=== PATIENT | male | born 1975 ===

== ENCOUNTER 2018-10-17 21:48 | Inpatient (IN) | payer MEDICAID, OTHER ==
[2018-10-17] MEDS ORDERED: Albuterol-Ipratrop 3 mg / 0.5 (3 ml) UD IH STA (22:13)
--- NOTE | 2018-10-17 22:38 | ED PDOC ---
Arrival/HPI - General Chief Complaint: Psychiatric Evaluation Time Seen by Provider: 10/17/18 21:49 Historian: Patient - History of Present Illness Narrative History of Present Illness (Text): 10/17/18 22:02 42 year old male, with no significant past medical history, presents for psych admission from [facility] for depression. Patient denies any fever, chills, chest pain, shortness of breath, nausea, vomiting, diarrhea, urinary symptoms, back pain, neck pain, headache, dizziness, SI/HI, or any other complaints. Symptom Onset: Gradual Activities at Onset: Light Context: Other (transfer) Past Medical History - Provider Review Nursing Documentation Reviewed: Yes - Psychiatric Hx Psychophysiologic Disorder: Yes Hx Anxiety: Yes Hx Depression: Yes Hx Substance Use: No Family/Social History - Physician Review Nursing Documentation Reviewed: Yes Family/Social History: No Known Family HX Smoking Status: Never Smoked Hx Alcohol Use: No Hx Substance Use: No Allergies/Home Meds Allergies/Adverse Reactions: Allergies No Known Allergies Allergy (Verified 10/18/18 00:06) Home Medications: Home Meds Medication Instructions Recorded Confirmed Albuterol HFA [Ventolin HFA 90 2 puff IH DAILY PRN 10/18/18 10/18/18 mcg/actuation (8 g)] Alprazolam [Xanax] 2 mg PO TID 10/18/18 10/18/18 Review of Systems - Physician Review All systems were reviewed & negative as marked: Yes - Review of Systems Constitutional: absent: Fevers, Other (chills) Respiratory: absent: SOB Cardiovascular: absent: Chest Pain Gastrointestinal: absent: Diarrhea, Nausea, Vomiting Genitourinary Male: absent: Dysuria, Frequency, Hematuria Musculoskeletal: absent: Back Pain, Neck Pain Neurological: absent: Headache, Dizziness Psychiatric: Depression. absent: Suicidal Ideation (/HI) Physical Exam Vital Signs Reviewed: Yes Vital Signs Temp Pulse Resp BP Pulse Ox 10/17/18 21:57 98.3 F 70 18 127/80 97 Temperature: Afebrile Blood Pressure: Normal Pulse: Regular Respiratory Rate: Normal Appearance: Positive for: Well-Appearing, Non-Toxic, Comfortable Pain Distress: None Mental Status: Positive for: Alert and Oriented X 3 - Systems Exam Head: Present: Atraumatic, Normocephalic Pupils: Present: PERRL Extroacular Muscles: Present: EOMI Conjunctiva: Present: Normal Mouth: Present: Moist Mucous Membranes Neck: Present: Normal Range of Motion Respiratory/Chest: Present: Clear to Auscultation, Good Air Exchange. No: Respiratory Distress, Accessory Muscle Use Cardiovascular: Present: Regular Rate and Rhythm, Normal S1, S2. No: Murmurs Abdomen: No: Tenderness, Distention, Peritoneal Signs Back: Present: Normal Inspection Upper Extremity: Present: Normal Inspection. No: Cyanosis, Edema Lower Extremity: Present: Normal Inspection. No: Edema Neurological: Present: GCS=15, CN II-XII Intact, Speech Normal Skin: Present: Warm, Dry, Normal Color. No: Rashes Psychiatric: Present: Alert, Oriented x 3, Normal Insight, Normal Concentration Medical Decision Making ED Course and Treatment: 10/17/18 22:00 Impression: 42 year old male presents for psych admission from [facility]. Plan: -- douneb -- disposition Progress Notes: - Medication Orders Current Medication Orders: Discontinued Medications Albuterol/Ipratropium (Duoneb 3 Mg/0.5 Mg (3 Ml) Ud) 3 ml IH STAT STA Stop: 10/17/18 22:14 Last Admin: 10/17/18 22:29 Dose: 3 ml - Scribe Statement The provider has reviewed the documentation as recorded by the Shantell Mera Provider Scribe Attestation: All medical record entries made by the Scribe were at my direction and personally dictated by me. I have reviewed the chart and agree that the record accurately reflects my personal performance of the history, physical exam, medical decision making, and the department course for this patient. I have also personally directed, reviewed, and agree with the discharge instructions and disposition. Disposition/Present on Arrival - Present on Arrival Any Indicators Present on Arrival: No History of DVT/PE: No History of Uncontrolled Diabetes: No Urinary Catheter: No History of Decub. Ulcer: No History Surgical Site Infection Following: None - Disposition Have Diagnosis and Disposition been Completed?: Yes Diagnosis: Depression Disposition: HOSPITALIZED Disposition Time: 22:00 Condition: GOOD
[2018-10-17 23:12] VITALS: O2SAT 100
[2018-10-17] MEDS ORDERED: Alum-Mag Hydrox-Simethicone Susp (30 mL) PO PRN (23:41)
[2018-10-17] MEDS ORDERED: Magnesium Hydroxide Susp 30 ml UD PO PRN (23:41)
[2018-10-17] MEDS ORDERED: DiphenhydrAMINE 50 mg/ml Inj IM PRN (23:42)
[2018-10-17] MEDS ORDERED: Albuterol HFA 90 mcg/actuation (8 g) IH PRN (23:42)
--- NOTE | 2018-10-18 00:19 | PCM.BM ---
<Shawn Blackwell - Last Filed: 10/18/18 00:17> Treatment Plan Problems - Problems identified on initial assessmt Auditory Hallucinations Date Initiated: 10/18/18 Time Initiated: 00:18 Assessment reference: NA Status: Active Hopelessness/Helplessness Date Initiated: 10/18/18 Time Initiated: 00:18 Assessment reference: NA Status: Active Ineffective Coping Date Initiated: 10/18/18 Time Initiated: 00:18 Assessment reference: NA Status: Active Social Isolation Date Initiated: 10/18/18 Time Initiated: 00:18 Assessment reference: NA Status: Active Treatment assets and liabiliti Patient Assests: adapts well, cooperative, self-reliant, ADL independent, cognitively intact Patient Liabilities: live alone, physical pain, poor support system, relationship conflicts, substance abuse - Milieu Protocol Maintain good personal hygiene: daily Encourage regular showers, daily Remind patient to perform daily oral care, daily Assist patient to perform ADL's Conduct patient checks and document Observation sheet: Q15 minutes Maintain personal safety: every shift Educate patient to report safety concerns to staff, every shift Monitor environment for contraband/sharps Medication safety: Monitor for expected outcome, potential side effects: every shift, Assess barriers to learning: every shift, Assess readiness for medication education: every shift Discharge/Continuing Care - Education Needs Education Needs: Patient Medication, Patient Diagnosis/Disease Process, Patient Coping Skills, Patient Community resources, Patient Activities of Daily Living, Patient Pain, Patient Health Practices/Safety, Patient Personal Hygiene/Grooming, Patient Aftercare Safety Plan - Discharge Discharge Criteria: Tolerates medication w/o severe side effects, Free of Suicidal thoughts, Normal sleep pattern, Ability to care for self, Reduction of target symptoms <Lali Thompson - Last Filed: 10/18/18 13:15> - Diagnosis (1) Psychosis Status: Acute Interventions: 10/18/18 13:16 Psychoeducation/psychotherapy Psychopharmacology/adjustment of medications as needed/ monitoring possible side effects Evaluate pt on daily basis Compliance with medications and follow up appointments Long acting medication if pt is noncompliant with pill form Suicide and homicide risk assessment and prevention, coping strategies, safety plan Relapse prevention Reduction of symptoms Improve functional status Possible assertive community treatment Cognitive behavioral therapy Family involvement Possible social skill training as outpatient (2) Depression Status: Acute Interventions: 10/18/18 13:16 Psychoeducation Psychopharmacology/adjustment of medications as needed/ monitoring possible side effects Evaluate pt on daily basis Compliance with medications and follow up appointments Suicide and homicide risk assessment and prevention Relapse prevention Reduction of symptoms Improve functional status Family involvement As outpatient: cognitive behavioral therapy (3) Substance abuse Status: Acute Interventions: 10/18/18 13:17 Pharmacotherapy for alcohol/benzos/opioid dependence Maintaining sobriety Relapse prevention Possible rehabilitation Motivational interviewing 12-step programs: AA meetings <Liliya Hammond Y - Last Filed: 10/18/18 16:19> Family Contact Family involvement: Family/SO is involved Family contact: Patient agrees to contact Family contact name: Deisy Cortes(sister) Family contacted how many times per week?: 2
[2018-10-18 07:41] LABS: GLUCOSE,FASTING 110 mg/dL (65-110); HDL CHOLESTEROL 33 mg/dL (29-60)
[2018-10-18 07:53] LABS: LDL CHOLESTEROL 161 mg/dL (0-129)
--- NOTE | 2018-10-18 13:15 | PCM.PSYCH ---
Initial Psychiatric Evaluation - Initial Psychiatric Evaluation Type of Admission: Voluntary Legal Status: Capacity Chief Complaint (in patient's own words): "My neighbors from upstairs messed me up " Patient's Reaction to Hospitalization: Patient was admitted to the psychiatric inpatient unit for evaluation stabilization of psychotic symptoms and possible suicidal ideation. History of Present Illness and Precipitating Events: Shortly, patient is 42 year old male with a history of anxiety and depression presents to the [facility] emergency department with complaints of hearing voices and feeling anxious. states h/o of anxiety depression. [facility] did not have any ability, patient was transferred here in [place] for further evaluation stabilization and medication management. Patient was seen and examined today at the treatment team meeting, patient presented with acceptable personal hygiene, good ADLs. Patient seems to be poor and unreliable historian, said that the main reason why he came to the hospital was "depression and anxiety" patient denied feeling paranoid denied hearing voices and denied seeing things. the only psychotic statement pt reported that "my neighbours messed me up by smoking something..." But based on report patient presented to be psychotic in the ED, complaining of hearing voices for the past 4 months, telling him about person by the name David Clayton, patient did not know who the person is. Patient also said that there is some device implanted into his hand. At times voices telling him to harm others and himself but patient adamantly denied that he wanted to harm himself or others. Patient denied previous history of suicidal attempts, patient denied previous psychiatric admissions. Patient reported that he sees Dr. Damian as outpatient, patient does not remember medication besides alprazolam. Dr. Damian was contacted, left a message. Urine drug screen was positive for opioids and marijuana. Patient reports that he smokes cigarettes half a pack a day, refused to be on nicotine patch, counseling provided. Patient denied being abused in the past. Patient reported that he is constantly feeling anxious, reported that he has panic attacks. Past psychiatric history: Denied suicidal attempts, denied previously psychiatric admissions. Patient does not remember the name of the pharmacy, but remember being on alprazolam 2 mg 3 times a day. Family history: Patient denied family history of mental illness. Medical history: Patient reported that he had shoulder pain due to fall, patient reported that he needs to have surgery, he needs to have x-ray be taken. Lab Results 10/18/18 07:15: TSH 3rd Generation 0.39 L 10/18/18 07:15: Fasting Glucose 110, Triglycerides 110, Cholesterol 224 H, LDL Cholesterol Direct 161 H, HDL Cholesterol 33 Vital Signs Temp Pulse Resp BP Pulse Ox 10/18/18 07:31 97.8 F 69 20 118/76 10/17/18 23:11 97.5 F L 74 17 108/82 100 10/17/18 21:57 98.3 F 70 18 127/80 97 The patient failed the outpatient lower level of care: Yes Current Medications: Active Medications Generic Name Dose Route Start Last Admin Trade Name Freq PRN Reason Stop Dose Admin Acetaminophen 650 mg 10/17/18 23:41 10/18/18 08:48 Tylenol 325mg Tab PO 650 mg Q6H PRN Administration Pain, moderate (4-7) Al Hydrox/Mg Hydrox/Simethicone 30 ml 10/17/18 23:41 Maalox Plus 30 Ml PO DAILY PRN Indigestion / Heartburn Albuterol 2 puff 10/17/18 23:42 Ventolin Hfa 90 Mcg/Actuation (8 G) IH [id number] PRN Shortness of Breath Diphenhydramine HCl 50 mg 10/17/18 23:42 Benadryl IM Q6 PRN Severe Agitation Diphenhydramine HCl 50 mg 10/17/18 23:42 Benadryl PO Q6 PRN Agitation Haloperidol 5 mg 10/17/18 23:42 Haldol PO Q6 PRN Agitation Protocol Haloperidol Lactate 5 mg 10/17/18 23:50 Haldol IM Q6 PRN Agitation Protocol Lorazepam 1 mg 10/17/18 23:45 10/18/18 07:09 Ativan PO 1 mg Q8 ZARA Administration Protocol Lorazepam 2 mg 10/17/18 23:42 10/18/18 08:48 Ativan PO 2 mg Q6 PRN Administration anxiety/agitation Protocol Lorazepam 2 mg 10/17/18 23:42 Ativan IM Q6H PRN Agitation Protocol Magnesium Hydroxide 30 ml 10/17/18 23:41 Milk Of Magnesia PO DAILY PRN Constipation Zaleplon 10 mg 10/17/18 23:42 Sonata PO HS PRN Insomnia Present on Admission - Present on Admission Any Indicators Present on Admission: No History of DVT/PE: No History of Uncontrolled Diabetes: No Urinary Catheter: No Decubitus Ulcer Present: No Review of Systems - Review of Systems Systems not reviewed;Unavailable: Acuity of Condition - Constitutional Constitutional: As Per HPI - EENT Eyes: As Per HPI Ears: As Per HPI Nose/Mouth/Throat: As Per HPI - Cardiovascular Cardiovascular: As Per HPI - Respiratory Respiratory: As Per HPI - Gastrointestinal Gastrointestinal: As Per HPI - Genitourinary Genitourinary: As Per HPI - Reproductive: Male Reproductive:Male: As Per HPI - Musculoskeletal Musculoskeletal: As Per HPI - Integumentary Integumentary: As Per HPI - Neurological Neurological: As Per HPI - Psychiatric Psychiatric: As Per HPI - Endocrine Endocrine: As Per HPI - Hematologic/Lymphatic Hematologic: As Per HPI Past Patient History - Past Psychiatric History Previous Treatment History: None Prior Professional Help: As per HPI Prior Psychiatric Treatment: As per HPI At [facility]: As per HPI Duration: As per HPI Nature of Treatment: As per HPI Explanation of prior treatment: As per HPI - PSYCHIATRIC Hx Psychophysiologic Disorder: Yes Hx Anxiety: Yes Hx Depression: Yes Hx Substance Use: No - CARDIAC Hx Cardiac Disorders: No - PULMONARY Hx Respiratory Disorders: Yes Hx Asthma: Yes - NEUROLOGICAL Hx Neurological Disorder: No - HEENT Hx HEENT Problems: No - RENAL Hx Chronic Kidney Disease: No - ENDOCRINE/METABOLIC Hx Endocrine Disorders: No - HEMATOLOGICAL/ONCOLOGICAL Hx Blood Disorders: No - INTEGUMENTARY Hx Dermatological Problems: No - MUSCULOSKELETAL/RHEUMATOLOGICAL Hx Falls: Yes (2-3 months ago) Hx Fractures: Yes (left shoulder 2-3 months ago) Other/Comment: 2-3 months ago patient stated he tripped on the street and fell, resulting in left shoulder fracture and receiving 2 surgeries in which 2 metal plates were placed in left shoulder - GASTROINTESTINAL Hx Gastrointestinal Disorders: No - GENITOURINARY/GYNECOLOGICAL Hx Genitourinary Disorders: No - SURGICAL HISTORY Hx Surgeries: Yes Hx Musculoskeletal Surgery: Yes Other/Comment: 2-3 months ago patient stated he tripped on the street and fell, resulting in left shoulder fracture and receiving 2 surgeries in which 2 metal plates were placed in left shoulder - ANESTHESIA Hx Anesthesia: Yes - Medical/Surgical History Reviewed & confirmed: by [place] Meds Allergies/Adverse Reactions: Allergies Allergy/AdvReac Type Severity Reaction Status Date / Time No Known Allergies Allergy Verified 10/18/18 00:06 Mental Status Examination - Personal Presentation Personal Presentation: Looks stated age - Affect Affect: Constricted - Motor Activity Motor Activity: Calm - Reliability in Providing Information Reliability in Providing Information: Fair - Speech Speech: Disorganized - Mood Mood: Depressed, Anxious - Formal Thought Process Formal Thought Process: Hallucinations, Delusions, Paranoia - Hallucinations/Delusions Delusions: Persecution - Obsessions/Compulsions Obsessions: None Compulsions: None - Cognitive Functions Orientation: Person, Place, Situation, Time Sensorium: Alert Attention/Concentration: Easily distracted Estimate of Intelligence: Average Judgement: Intact, as evidence by: Insight regarding need for hospitalization - Risk Risk: Diminished functioning - Strength & Assets Inventory Strength & Assets Inventory: Cooperative, Other (Good physical help, no aggression, no agitation, not known history of suicidal attempts) - Limitations Limitations: Living alone Psychiatric Physical Exam - Physical Exam Reviewed and confirmed: Emergency Department Physical Exam Results - Vital Signs Recent Vital Signs: Last Vital Signs Temp 97.8 F 10/18/18 07:31 Pulse 69 10/18/18 07:31 Resp 20 10/18/18 07:31 BP 118/76 10/18/18 07:31 Pulse Ox 100 10/17/18 23:11 - Labs Labs: Laboratory Results - last 24 hr 10/18/18 10/18/18 07:15 07:15 Fasting Glucose 110 Triglycerides 110 Cholesterol 224 H LDL Cholesterol Direct 161 H HDL Cholesterol 33 TSH 3rd Generation 0.39 L - EKG Data EKG Interpreted by: ER Physician DSM Plan - DSM 5 DSM 5 Diagnosis: Rule out major depressive disorder, severe with psychosis Rule out late onset of schizophrenia Rule out substance-induced psychosis Rule out generalized anxiety disorder and panic disorder - Recommended/Plan of Treatment Treatment Recommendations and Plan of Treatment: Milieu/structure/supportive therapy SW consultation for discharge plan and social issues Med management Xanax was resumed 2 mg 3 times a day as needed for anxiety Seroquel 100 mg at the nighttime for psychosis and mood stabilization Medical consult will be called Physical therapy will be called Orthopedic consult will be called As needed medication Dr. Damian was contacted, left a message Family involvement Follow up on labs Will monitor closely Pt was educated about risk/benefits and alternatives of medications, coping strategies (safety plan, suicide prevention), relapse prevention, importance of follow up with psychiatrist and therapist, stay away from drugs/alcohol/smoking Projected ELOS: 7 days Prognosis: Guarded Discharge Plan and Discharge Criteria: Patient will pose no imminent danger to self or others - Tobacco Cessation Tobacco Use Status for the last 30 days: Heavy User(>=5 cigs &/or cigars/pipes daily) Tobacco Use Treatment Practical Counseling Provided: Yes Tobacco Use Treatment FDA-Approved Cessation Medication Provided: No Reason for not providing: Patient refused tobacco cessation medication - Alcohol or Substance Abuse Does the patient have an Alcohol or Substance Abuse Disorder: Yes Initial Psych Certification - Initial Certification I certify that the inpatient psychiatric facility admission was medically necessary for either: Treatment which could reasonbly be expected to improve pt's condition I estimate of hospitalization is necessary for proper treatment of the patient: 7 Unit of Time: Days My plans for post-hospital care for this patient are: Dual diagnosis program
--- NOTE | 2018-10-18 16:32 | CP.PCM.CON ---
<Juan Antonio Kiran - Last Filed: 10/18/18 16:27> History of Present Illness - History of Present Illness History of Present Illness: 42 year old male with past medical history of anxiety, depression, and asthma presenting to the hospital for possible suicidal ideation and worsening depression. Patient states he went to [facility] because he was feeling more depressed than usual. Patient denies suicidal or homicidal ideation. Patient also mentions he has had wheezing for the past several days not helped by his albuterol inhaler at home. Patient fell down stairs and had shoulder surgery two months ago. Denies chest pain, nausea, vomiting, diarrhea, fever, chills, changes in vision, numbness, tingling, weakness. Medical Hx: As above Surgical Hx: Left shoulder surgery Family Hx: Denies Social Hx: Denies alcohol, tobacco, or illicit drug use Allergies: NKDA Medications: Albuterol, nebulizer machine Review of Systems - Review of Systems Review of Systems: 12 point ROS as per HPI, otherwise negative Past Patient History - Past Social History Smoking Status: Never Smoked - CARDIAC Hx Cardiac Disorders: No - PULMONARY Hx Respiratory Disorders: Yes Hx Asthma: Yes - NEUROLOGICAL Hx Neurological Disorder: No - HEENT Hx HEENT Problems: No - RENAL Hx Chronic Kidney Disease: No - ENDOCRINE/METABOLIC Hx Endocrine Disorders: No - HEMATOLOGICAL/ONCOLOGICAL Hx Blood Disorders: No - INTEGUMENTARY Hx Dermatological Problems: No - MUSCULOSKELETAL/RHEUMATOLOGICAL Hx Falls: Yes (2-3 months ago) Hx Fractures: Yes (left shoulder 2-3 months ago) Other/Comment: 2-3 months ago patient stated he tripped on the street and fell, resulting in left shoulder fracture and receiving 2 surgeries in which 2 metal plates were placed in left shoulder - GASTROINTESTINAL Hx Gastrointestinal Disorders: No - GENITOURINARY/GYNECOLOGICAL Hx Genitourinary Disorders: No - PSYCHIATRIC Hx Psychophysiologic Disorder: Yes Hx Anxiety: Yes Hx Depression: Yes Hx Substance Use: No - SURGICAL HISTORY Hx Surgeries: Yes Hx Musculoskeletal Surgery: Yes Other/Comment: 2-3 months ago patient stated he tripped on the street and fell, resulting in left shoulder fracture and receiving 2 surgeries in which 2 metal plates were placed in left shoulder - ANESTHESIA Hx Anesthesia: Yes Meds Allergies/Adverse Reactions: Allergies Allergy/AdvReac Type Severity Reaction Status Date / Time No Known Allergies Allergy Verified 10/18/18 00:06 - Medications Medications: Current Medications Acetaminophen (Tylenol 325mg Tab) 650 mg PO Q6H PRN PRN Reason: Pain, moderate (4-7) Last Admin: 10/18/18 15:50 Dose: 650 mg Al Hydrox/Mg Hydrox/Simethicone (Maalox Plus 30 Ml) 30 ml PO DAILY PRN PRN Reason: Indigestion / Heartburn Albuterol (Ventolin Hfa 90 Mcg/Actuation (8 G)) 2 puff IH [id number] PRN PRN Reason: Shortness of Breath Alprazolam (Xanax) 2 mg PO TID PRN; Protocol PRN Reason: Anxiety Last Admin: 10/18/18 15:48 Dose: 2 mg Diphenhydramine HCl (Benadryl) 50 mg IM Q6 PRN PRN Reason: Severe Agitation Diphenhydramine HCl (Benadryl) 50 mg PO Q6 PRN PRN Reason: Agitation Haloperidol (Haldol) 5 mg PO Q6 PRN; Protocol PRN Reason: Agitation Haloperidol Lactate (Haldol) 5 mg IM Q6 PRN; Protocol PRN Reason: Agitation Lorazepam (Ativan) 2 mg IM Q6H PRN; Protocol PRN Reason: Agitation Magnesium Hydroxide (Milk Of Magnesia) 30 ml PO DAILY PRN PRN Reason: Constipation Prednisone (Prednisone Tab) 20 mg PO ONCE ONE Stop: 10/19/18 12:01 Prednisone (Prednisone Tab) 10 mg PO ONCE ONE Stop: 10/20/18 13:01 Prednisone (Prednisone Tab) 5 mg PO ONCE ONE Stop: 10/21/18 13:01 Quetiapine Fumarate (Seroquel) 100 mg PO HS ZARA; Protocol Fluticasone/Salmeterol (Advair Diskus 250/50) 1 puff IH Q12 ZARA Zaleplon (Sonata) 10 mg PO HS PRN PRN Reason: Insomnia Physical Exam - Constitutional Appears: Non-toxic, No Acute Distress - Head Exam Head Exam: ATRAUMATIC, NORMAL INSPECTION, NORMOCEPHALIC - Eye Exam Eye Exam: EOMI, Normal appearance - ENT Exam ENT Exam: Mucous Membranes Moist, Normal Exam - Respiratory Exam Respiratory Exam: Wheezes, NORMAL BREATHING PATTERN. absent: Rales, Rhonchi - Cardiovascular Exam Cardiovascular Exam: RRR, Rubs, +S1. absent: Clicks, Gallop, Systolic Murmur - GI/Abdominal Exam GI & Abdominal Exam: Normal Bowel Sounds, Soft. absent: Mass, Tenderness - Extremities Exam Extremities exam: Positive for: normal inspection. Negative for: calf tenderness, pedal edema - Neurological Exam Neurological exam: Alert, CN II-XII Intact, Oriented x3 - Psychiatric Exam Psychiatric exam: Normal Affect, Normal Mood - Skin Skin Exam: Dry, Normal Color, Warm Results - Vital Signs Recent Vital Signs: Last Vital Signs Temp 97.8 F 10/18/18 07:31 Pulse 84 10/18/18 16:00 Resp 20 10/18/18 07:31 BP 118/80 10/18/18 16:00 Pulse Ox 100 10/17/18 23:11 - Labs Labs: Laboratory Results - last 24 hr 10/18/18 10/18/18 07:15 07:15 Fasting Glucose 110 Triglycerides 110 Cholesterol 224 H LDL Cholesterol Direct 161 H HDL Cholesterol 33 TSH 3rd Generation 0.39 L Assessment & Plan - Assessment and Plan (Free Text) Plan: 42 year old male with past medical history of asthma, anxiety, and depression presenting for worsening depression and possible suicidal ideation. Urine tox demonstrates opioids and benzos. Asthma Duonebs prn Prednisone taper Advair Left shoulder surgery Continue physical therapy Depression/Anxiety Management as per psychiatry Substance abuse Counseled on illicit drug cessation Magno, PGY-3 <Lebron Stallworth - Last Filed: 10/22/18 12:57> Meds - Medications Medications: Current Medications Acetaminophen (Tylenol 325mg Tab) 650 mg PO Q6H PRN PRN Reason: Pain, moderate (4-7) Last Admin: 10/18/18 22:14 Dose: 650 mg Al Hydrox/Mg Hydrox/Simethicone (Maalox Plus 30 Ml) 30 ml PO DAILY PRN PRN Reason: Indigestion / Heartburn Albuterol (Ventolin Hfa 90 Mcg/Actuation (8 G)) 2 puff IH [id number] PRN PRN Reason: Shortness of Breath Alprazolam (Xanax) 2 mg PO TID PRN; Protocol PRN Reason: Anxiety Last Admin: 10/19/18 12:08 Dose: 2 mg Diphenhydramine HCl (Benadryl) 50 mg IM Q6 PRN PRN Reason: Severe Agitation Diphenhydramine HCl (Benadryl) 50 mg PO Q6 PRN PRN Reason: Agitation Haloperidol (Haldol) 5 mg PO Q6 PRN; Protocol PRN Reason: Agitation Haloperidol Lactate (Haldol) 5 mg IM Q6 PRN; Protocol PRN Reason: Agitation Lorazepam (Ativan) 2 mg IM Q6H PRN; Protocol PRN Reason: Agitation Magnesium Hydroxide (Milk Of Magnesia) 30 ml PO DAILY PRN PRN Reason: Constipation Prednisone (Prednisone Tab) 10 mg PO ONCE ONE Stop: 10/20/18 13:01 Prednisone (Prednisone Tab) 5 mg PO ONCE ONE Stop: 10/21/18 13:01 Quetiapine Fumarate (Seroquel) 100 mg PO HS ZARA; Protocol Last Admin: 10/18/18 21:06 Dose: 100 mg Fluticasone/Salmeterol (Advair Diskus 250/50) 1 puff IH Q12 ZARA Last Admin: 10/19/18 07:02 Dose: 1 puff Zaleplon (Sonata) 10 mg PO HS PRN PRN Reason: Insomnia Results - Vital Signs Recent Vital Signs: Last Vital Signs Temp 98.1 F 10/19/18 07:22 Pulse 87 10/19/18 07:22 Resp 20 10/19/18 07:22 BP 108/71 10/19/18 07:22 Pulse Ox 100 10/17/18 23:11 - Labs Labs: Laboratory Results - last 24 hr 10/18/18 07:15 RPR Nonreactive Attending/Attestation - Attestation I have personally seen and examined this patient.: Yes I have fully participated in the care of the patient.: Yes I have reviewed all pertinent clinical information: Yes Notes (Text): 10/19/18 16:39 Patient was seen and examined with neuropsychology medical consultant. 42 year old male with past medical history of anxiety, depression, and moderate intermittent asthma is admitted for depression.patient has mild wheezing suggestive of mild asthama exacerbation.Agreed with NEB/steroid, Continue Advair, 10/22/18 12:57
[2018-10-18] MEDS: Fluticasone-Salmeterol 250-50mcg Diskus IH SCH (17:57)
[2018-10-19] MEDS: Fluticasone-Salmeterol 250-50mcg Diskus IH SCH ×2 (07:02→17:23)
--- NOTE | 2018-10-19 15:34 | PCM.PYCHPN ---
Psychiatric Progress Note - Psychiatric Progress Note Patient seen today, length of contact: 30 minutes Patient Chief Complaint: "My neighbors from upstairs messed me up " Problems Identified/Issues Discussed: Treatment plan, risks/benefits/alternatives of the medications, aftercare plan. Medical Problems: Patient is relatively healthy, was seen by medical team, consult appreciated. Please see notes for more detailed information. Diagnostic Results: Lab Results 10/18/18 07:15: RPR Nonreactive 10/18/18 07:15: TSH 3rd Generation 0.39 L 10/18/18 07:15: Fasting Glucose 110, Triglycerides 110, Cholesterol 224 H, LDL Cholesterol Direct 161 H, HDL Cholesterol 33 Vital Signs Temp Pulse Resp BP Pulse Ox 10/19/18 07:22 98.1 F 87 20 108/71 10/18/18 16:00 84 118/80 10/18/18 07:31 97.8 F 69 20 118/76 10/17/18 23:11 97.5 F L 74 17 108/82 100 10/17/18 21:57 98.3 F 70 18 127/80 97 DSM 5 Symptoms Update: Shortly, patient is 42 year old male with a history of anxiety and depression presents to the [facility] emergency department with complaints of hearing voices and feeling anxious. states h/o of anxiety depression. [facility] did not have any ability, patient was transferred here in [place] for further evaluation stabilization and medication management. Patient was seen and examined today next to the nursing station. Patient presented to be oddly related, anxious, patient reported that he did not hear voices today, patient remembered that she was feeling paranoid and heard voices prior to come to the hospital. As per staff patient is compliant with her medications, no agitation or aggr ession, patient is visible in the unit. Discussed with outpatient psychiatrist Dr. Damian, 3 weeks ago patient was prescribed Ritalin, Dr. Damian cannot exclude that voices/paranoia could be a side effect from Ritalin. Patient has history of being on Seroquel, patient did not have history of hearing voices, no history of seeing things are going was prescribed as a mood stabilizer. ?medical marijuana prescribe. So far patient tolerates medications well, no side effects observed or reported, aims 0, no EPS. Impression: DSM 5 Diagnosis: Rule out major depressive disorder, severe with psychosis Rule out medication (ritalin) induced psychosis Rule out late onset of schizophrenia Rule out substance-induced psychosis Rule out generalized anxiety disorder and panic disorder Medication Change: Yes (Seroquel increased) Medical Record Reviewed: Yes Consults ordered or reviewed: Medical consult appreciated Mental Status Examination - Cognitive Function Orientation: Person, Place, Situation, Time Memory: Intact Attention: Poor Concentration: Poor Association: WNL Fund of Knowledge: WNL - Mood Mood: Depressed, Anxious - Affect Affect: Constricted - Formal Thought Process Formal Thought Process: Hallucinations, Delusions, Paranoia - Suicidal Ideation Suicidal Ideation: No - Homicidal Ideation Homicidal Ideation: No Goal/Treatment Plan - Goal/Treatment Plan Need for Continued Stay: Remain at risks for inpatient hospitalization, Severe depression anxiety, Discharge may exacerbated symptoms, Severe functional impairment Progress Toward Problem(s) and Goals/Treatment Plan: Milieu/structure/supportive therapy consultation for discharge plan and social issues Med management Xanax was resumed 2 mg 3 times a day as needed for anxiety Seroquel 100 mg at the nighttime for psychosis and mood stabilization Sonata 10 mg at the nighttime for insomnia Medical consult will be called Physical therapy will be called Orthopedic consult called As needed medication Dr. Damian collaterals appreciated Family involvement Follow up on labs Will monitor closely Pt was educated about risk/benefits and alternatives of medications, coping strategies (safety plan, suicide prevention), relapse prevention, importance of follow up with psychiatrist and therapist, stay away from drugs/alcohol/smoking Estimated Date of D/C: 10/28/18
[2018-10-20] MEDS: Fluticasone-Salmeterol 250-50mcg Diskus IH SCH ×2 (06:02→17:58)
--- NOTE | 2018-10-20 13:48 | PCM.PYCHPN ---
Psychiatric Progress Note - Psychiatric Progress Note Patient seen today, length of contact: 30 minutes Patient Chief Complaint: "I am feeling better, I slept well" Problems Identified/Issues Discussed: Treatment plan, risks/benefits/alternatives of the medications, aftercare plan. Medical Problems: Patient is relatively healthy, was seen by medical team, consult appreciated. Please see notes for more detailed information. Diagnostic Results: Lab Results 10/18/18 07:15: RPR Nonreactive 10/18/18 07:15: TSH 3rd Generation 0.39 L 10/18/18 07:15: Fasting Glucose 110, Triglycerides 110, Cholesterol 224 H, LDL Cholesterol Direct 161 H, HDL Cholesterol 33 Vital Signs Temp Pulse Resp BP Pulse Ox 10/19/18 07:22 98.1 F 87 20 108/71 10/18/18 16:00 84 118/80 10/18/18 07:31 97.8 F 69 20 118/76 10/17/18 23:11 97.5 F L 74 17 108/82 100 10/17/18 21:57 98.3 F 70 18 127/80 97 DSM 5 Symptoms Update: Shortly, patient is 42 year old male with a history of anxiety and depression presents to the [facility] emergency department with complaints of hearing voices and feeling anxious. states h/o of anxiety depression. [facility] did not have any ability, patient was transferred here in [place] for further evaluation stabilization and medication management. Patient was seen and examined today next to the nursing station. Patient presented to be oddly related, at times smiling inappropriately, but denied any psychotic symptoms. As per social media director who obtained collateral information from patient's sister, patient was observed talking to himself, internally preoccupied, disorganized. As per staff patient is compliant with medications, no agitation or aggression, patient is visible in the unit. Discussed with outpatient psychiatrist Dr. Damian, 3 weeks ago patient was prescribed Ritalin, Dr. Damian cannot exclude that voices/paranoia could be a side effect from Ritalin. Patient has history of being on Seroquel, patient did not have history of hearing voices, no history of seeing things are going was prescribed as a mood stabilizer. ?medical marijuana prescribe. So far patient tolerates medications well, no side effects observed or reported, aims 0, no EPS. Impression: DSM 5 Diagnosis: Rule out major depressive disorder, severe with psychosis Rule out medication (ritalin) induced psychosis Rule out late onset of schizophrenia Rule out substance-induced psychosis Rule out generalized anxiety disorder and panic disorder Medication Change: Yes (Seroquel increased) Medical Record Reviewed: Yes Mental Status Examination - Cognitive Function Orientation: Person, Place, Situation, Time Memory: Intact Attention: Poor Concentration: Poor Association: WNL Fund of Knowledge: WNL - Mood Mood: Depressed, Anxious - Affect Affect: Constricted - Formal Thought Process Formal Thought Process: Hallucinations, Delusions, Paranoia, Other (appears to be disorganized) - Suicidal Ideation Suicidal Ideation: No - Homicidal Ideation Homicidal Ideation: No Goal/Treatment Plan - Goal/Treatment Plan Need for Continued Stay: Remain at risks for inpatient hospitalization, Severe depression anxiety, Discharge may exacerbated symptoms, Severe functional impairment Progress Toward Problem(s) and Goals/Treatment Plan: Milieu/structure/supportive therapy SW consultation for discharge plan and social issues Med management Xanax was resumed 2 mg 3 times a day as needed for anxiety Seroquel 100 mg amhs for psychosis and mood stabilization Sonata 10 mg at the nighttime for insomnia Medical consult will be called Physical therapy will be called Orthopedic consult called As needed medication Dr. Damian collaterals appreciated Family involvement Follow up on labs Will monitor closely Pt was educated about risk/benefits and alternatives of medications, coping strategies (safety plan, suicide prevention), relapse prevention, importance of follow up with psychiatrist and therapist, stay away from drugs/alcohol/smoking Estimated Date of D/C: 10/28/18
[2018-10-21] MEDS: Fluticasone-Salmeterol 250-50mcg Diskus IH SCH ×2 (06:15→18:35)
--- NOTE | 2018-10-21 14:54 | PCM.PYCHPN ---
Psychiatric Progress Note - Psychiatric Progress Note Patient seen today, length of contact: 30 minutes Patient Chief Complaint: "I am feeling better, I slept well" Problems Identified/Issues Discussed: Treatment plan, risks/benefits/alternatives of the medications, aftercare plan. Medical Problems: Patient is relatively healthy, was seen by medical team, consult appreciated. Please see notes for more detailed information. Diagnostic Results: Lab Results 10/18/18 07:15: RPR Nonreactive 10/18/18 07:15: TSH 3rd Generation 0.39 L 10/18/18 07:15: Fasting Glucose 110, Triglycerides 110, Cholesterol 224 H, LDL Cholesterol Direct 161 H, HDL Cholesterol 33 Vital Signs Temp Pulse Resp BP Pulse Ox 10/19/18 07:22 98.1 F 87 20 108/71 10/18/18 16:00 84 118/80 10/18/18 07:31 97.8 F 69 20 118/76 10/17/18 23:11 97.5 F L 74 17 108/82 100 10/17/18 21:57 98.3 F 70 18 127/80 97 DSM 5 Symptoms Update: Shortly, patient is 42 year old male with a history of anxiety and depression presents to the [facility] emergency department with complaints of hearing voices and feeling anxious. states h/o of anxiety depression. [facility] did not have any ability, patient was transferred here in [place] for further evaluation stabilization and medication management. Patient was seen and examined today next to the nursing station. Patient presented to be oddly related, at times smiling inappropriately, but denied any psychotic symptoms. As per professor of social work who obtained collateral information from patient's sister, patient was observed talking to himself, internally preoccupied, disorganized. As per staff patient is compliant with medications, no agitation or aggression, patient is visible in the unit. Discussed with outpatient psychiatrist Dr. Damian, 3 weeks ago patient was prescribed Ritalin, Dr. Damian cannot exclude that voices/paranoia could be a side effect from Ritalin. Patient has history of being on Seroquel, patient did not have history of hearing voices, no history of seeing things are going was prescribed as a mood stabilizer. ?medical marijuana prescribe. So far patient tolerates medications well, no side effects observed or reported, aims 0, no EPS. Impression: DSM 5 Diagnosis: Rule out major depressive disorder, severe with psychosis Rule out medication (ritalin) induced psychosis Rule out late onset of schizophrenia Rule out substance-induced psychosis Rule out generalized anxiety disorder and panic disorder Medication Change: Yes (Seroquel increased) Medical Record Reviewed: Yes Consults ordered or reviewed: Medical consult appreciated Mental Status Examination - Cognitive Function Orientation: Person, Place, Situation, Time Memory: Intact Attention: Poor (Some improvement) Concentration: Poor (Some improvement) Association: WNL Fund of Knowledge: WNL - Mood Mood: Depressed, Anxious - Affect Affect: Constricted - Formal Thought Process Formal Thought Process: Hallucinations, Delusions, Paranoia, Other (appears to be disorganized) - Suicidal Ideation Suicidal Ideation: No - Homicidal Ideation Homicidal Ideation: No Goal/Treatment Plan - Goal/Treatment Plan Need for Continued Stay: Remain at risks for inpatient hospitalization, Severe depression anxiety, Discharge may exacerbated symptoms, Severe functional impairment Progress Toward Problem(s) and Goals/Treatment Plan: Milieu/structure/supportive therapy SW consultation for discharge plan and social issues Med management Xanax was resumed 2 mg 3 times a day as needed for anxiety Seroquel 100 mg amhs for psychosis and mood stabilization Sonata 10 mg at the nighttime for insomnia Medical consult called, discussed with Dr. aranda on today 10/21/2018 Physical therapy called Orthopedic consult called As needed medication Dr. Damian collaterals appreciated Family involvement Follow up on labs Will monitor closely Pt was educated about risk/benefits and alternatives of medications, coping strategies (safety plan, suicide prevention), relapse prevention, importance of follow up with psychiatrist and therapist, stay away from drugs/alcohol/smoking Estimated Date of D/C: 10/28/18
[2018-10-22] MEDS: Fluticasone-Salmeterol 250-50mcg Diskus IH SCH ×2 (06:46→17:29)
--- NOTE | 2018-10-22 09:13 | PCM.PYCHPN ---
Psychiatric Progress Note - Psychiatric Progress Note Patient seen today, length of contact: 30 minutes Problems Identified/Issues Discussed: I reviewed assessment and recent notes. I met with patient in the dayroom. He is cooperative and oriented to month, year, location and circumstances. Grooming is adequate and patient can express his needs fairly well. Patient reports continued depression and anxiety however feels his symptoms are improving. Denies any side effects from his medications or any new discomfort or pain. Reports some chronic discomfort in his left shoulder from when he broke it a few months ago. Sleep has been a little restless. Patient's thought process is generally coherent. His affect is constricted, friendly and mildly odd. Patient denies any perceptual disturbance and he is not suicidal or homicidal. Delusions were not elicited. Patient has been groomed, visible and communicative on the unit. Participates in groups and seen socializing appropriately. There were no behavioral issues overnight. Diagnostic Results: Rule out major depressive disorder, severe with psychosis Rule out medication (ritalin) induced psychosis Rule out late onset of schizophrenia Rule out substance-induced psychosis Rule out generalized anxiety disorder and panic disorder Medication Change: Yes (Sonata prn increased) Medical Record Reviewed: Yes Mental Status Examination - Cognitive Function Orientation: Person, Place, Situation, Time Memory: Intact Attention: Poor (Some improvement) Concentration: Poor (Some improvement) Association: WNL Fund of Knowledge: WNL - Mood Mood: Depressed, Anxious - Affect Affect: Constricted - Formal Thought Process Formal Thought Process: Hallucinations, Delusions, Paranoia, Other (appears to be disorganized) - Suicidal Ideation Suicidal Ideation: No - Homicidal Ideation Homicidal Ideation: No Goal/Treatment Plan - Goal/Treatment Plan Need for Continued Stay: Remain at risks for inpatient hospitalization, Severe depression anxiety, Discharge may exacerbated symptoms, Severe functional impairment Progress Toward Problem(s) and Goals/Treatment Plan: * c/w current tx and plan * Sonata 10 mg po HS prn increased to 20 mg po HS prn on 10/22/18 to help with insomnia * Vitals reviewed and noted below: Selected Entries 10/21/18 10/21/18 10/22/18 07:15 16:00 06:51 Temperature 98.3 F 97.9 F Pulse Rate 83 80 99 H Respiratory 20 19 Rate Blood Pressure 116/81 100/62 145/94 H 10/22/18 07:54 Temperature 97.9 F Pulse Rate Respiratory Rate Blood Pressure * No new weekend lab results noted thus far Estimated Date of D/C: 10/28/18
[2018-10-23] MEDS: Fluticasone-Salmeterol 250-50mcg Diskus IH SCH ×2 (06:49→19:14)
[2018-10-23 07:30] VITALS: RESP 20
--- NOTE | 2018-10-23 09:20 | PCM.PYCHPN ---
Psychiatric Progress Note - Psychiatric Progress Note Patient seen today, length of contact: 30 minutes Problems Identified/Issues Discussed: I reviewed recent notes and met with patient in the hallway. He is cooperative and oriented to month, year, location and circumstances. Grooming is adequate and patient can express his needs fairly well. Patient reports continued depression and anxiety however feels his symptoms are improving. Denies any side effects from his medications or any new discomfort or pain. Reports some chronic discomfort in his left shoulder from when he broke it a few months ago. Sleep has been a little restless but "most definitely getting better". Patient's thought process is generally coherent. His affect is constricted, friendly and mildly odd. Patient denies any perceptual disturbance and he is not suicidal or homicidal. Delusions were not elicited. Patient has been groomed, visible and communicative on the unit. Participates in groups and seen socializing appropriately. Still has bouts of anxiety, improved with xanax prn (received 2 mg x1 on 10/20/18, 2 mg x1 on 10/21/18 and 2 mg x1 on 10/22/18. There were no behavioral issues over the weekend. Diagnostic Results: Rule out major depressive disorder, severe with psychosis Rule out medication (ritalin) induced psychosis Rule out late onset of schizophrenia Rule out substance-induced psychosis Rule out generalized anxiety disorder and panic disorder Medication Change: Yes (Sonata prn increased) Medical Record Reviewed: Yes Mental Status Examination - Cognitive Function Orientation: Person, Place, Situation, Time Memory: Intact Attention: Poor (Some improvement) Concentration: Poor (Some improvement) Association: WNL Fund of Knowledge: WNL - Mood Mood: Depressed, Anxious - Affect Affect: Constricted - Formal Thought Process Formal Thought Process: Hallucinations, Delusions, Paranoia, Other (appears to be disorganized) - Suicidal Ideation Suicidal Ideation: No - Homicidal Ideation Homicidal Ideation: No Goal/Treatment Plan - Goal/Treatment Plan Need for Continued Stay: Remain at risks for inpatient hospitalization, Severe depression anxiety, Discharge may exacerbated symptoms, Severe functional impairment Progress Toward Problem(s) and Goals/Treatment Plan: * c/w current tx and plan * Sonata 10 mg po HS prn increased to 20 mg po HS prn on 10/22/18 to help with insomnia * Vitals reviewed and noted below: Selected Entries 10/21/18 10/21/18 10/22/18 07:15 16:00 06:51 Temperature 98.3 F 97.9 F Pulse Rate 83 80 99 H Respiratory 20 19 Rate Blood Pressure 116/81 100/62 145/94 H 10/22/18 07:54 Temperature 97.9 F Pulse Rate Respiratory Rate Blood Pressure * No new weekend lab results noted Estimated Date of D/C: 10/28/18
--- NOTE | 2018-10-23 09:58 | RAD ---
Date of service: 10/23/2018 PROCEDURE: Radiographs of the Left Shoulder HISTORY: post op lt shoulder surg at [facility] COMPARISON: No prior. TECHNIQUE: 3 views obtained. FINDINGS: BONES: Prior open reduction internal plate and screw fixation of the humeral head. JOINTS: Acromioclavicular joint degenerative changes. SOFT TISSUES: Normal. OTHER FINDINGS: None. IMPRESSION: Prior left humeral ORIF.
[2018-10-24] MEDS: Fluticasone-Salmeterol 250-50mcg Diskus IH SCH (06:32)
[2018-10-24 07:44] VITALS: BP 111/67; PULSE 86; TEMP 98.3
--- NOTE | 2018-10-24 07:52 | CON ---
DATE: 10/23/2018 ORTHOPEDIC CONSULT REPORT HISTORY OF PRESENT ILLNESS: He is in room 516, bed [address] Lali Thompson, under psychiatric service. The patient is a 42-year-old male admitted on 10/17/2018 for mental hygiene evaluation and he was found to have a past history of recent left shoulder surgery done at [facility] in [place] for a fracture. Apparently, the wound is healed. No signs of infection, but has extreme limited range of motion with decreased external rotation and abduction where he can only abduct to 30-40 degrees and keeps his arm in internal rotation. We will get a x-ray to see what the orthopedic status is of the left shoulder. We could either do physical therapy to help his range of motion. His pain is tolerable as long as he does not move it, may be he said he has restricted range of motion postop with postop fibrosis will wait to see in x-ray to determine what is the next step. FINAL DIAGNOSIS: Postoperative arthrofibrosis, left shoulder with internal fixation. PLAN: To send him for physical therapy and get an x-ray of his left shoulder for a month old surgery at the [facility]. I will re-evaluate him after the x-ray is back. Abdias Bernal DO MTDJohn
--- NOTE | 2018-10-24 12:20 | PCM.BM ---
<Sofy Nuno - Last Filed: 10/24/18 12:19> Treatment Plan Problems - Problems identified on initial assessmt Auditory Hallucinations Date Initiated: 10/18/18 (DENIES AND FOR D/C TODAY) Time Initiated: 00:18 Date resolved: 10/24/18 Assessment reference: NA Status: Active Hopelessness/Helplessness Date Initiated: 10/18/18 Time Initiated: 00:18 Date resolved: 10/24/18 Assessment reference: NA Status: Active Ineffective Coping Date Initiated: 10/18/18 Time Initiated: 00:18 Date resolved: 10/24/18 Assessment reference: NA Status: Active Social Isolation Date Initiated: 10/18/18 Time Initiated: 00:18 Date resolved: 10/24/18 Assessment reference: NA Status: Active Treatment assets and liabiliti Patient Assests: adapts well, cooperative, self-reliant, ADL independent, cognitively intact Patient Liabilities: live alone, physical pain, poor support system, relationship conflicts, substance abuse - Milieu Protocol Maintain good personal hygiene: daily Encourage regular showers, daily Remind patient to perform daily oral care, daily Assist patient to perform ADL's Conduct patient checks and document Observation sheet: Q15 minutes Maintain personal safety: every shift Educate patient to report safety concerns to staff, every shift Monitor environment for contraband/sharps Medication safety: Monitor for expected outcome, potential side effects: every shift, Assess barriers to learning: every shift, Assess readiness for medication education: every shift Milieu Narrative: * c/w current tx and plan * Sonata 10 mg po HS prn increased to 20 mg po HS prn on 10/22/18 to help with insomnia * Vitals reviewed and noted below: Selected Entries 10/21/18 10/21/18 10/22/18 07:15 16:00 06:51 Temperature 98.3 F 97.9 F Pulse Rate 83 80 99 H Respiratory 20 19 Rate Blood Pressure 116/81 100/62 145/94 H 10/22/18 07:54 Temperature 97.9 F Pulse Rate Respiratory Rate Blood Pressure * No new weekend lab results noted Family Contact Family involvement: Family/SO is involved Family contact: Patient agrees to contact Family contact name: Deisy Cortes(sister) Family contacted how many times per week?: 2 Discharge/Continuing Care - Education Needs Education Needs: Patient Medication, Patient Diagnosis/Disease Process, Patient Coping Skills, Patient Community resources, Patient Activities of Daily Living, Patient Pain, Patient Health Practices/Safety, Patient Personal Hygiene/Grooming, Patient Aftercare Safety Plan - Discharge Discharge Criteria: Tolerates medication w/o severe side effects, Free of Suicidal thoughts, Normal sleep pattern, Ability to care for self, Reduction of target symptoms - Treatment Team Participation Patient/Family/SO Statement: * c/w current tx and plan * Sonata 10 mg po HS prn increased to 20 mg po HS prn on 10/22/18 to help with insomnia * Vitals reviewed and noted below: Selected Entries 10/21/18 10/21/18 10/22/18 07:15 16:00 06:51 Temperature 98.3 F 97.9 F Pulse Rate 83 80 99 H Respiratory 20 19 Rate Blood Pressure 116/81 100/62 145/94 H 10/22/18 07:54 Temperature 97.9 F Pulse Rate Respiratory Rate Blood Pressure * No new weekend lab results noted Treatment Plan Review - Problem Auditory Hallucinations Time Initiated: 00:18 Hopelessness/Helplessness Time Initiated: 00:18 Ineffective Coping Time Initiated: 00:18 Social Isolation Time Initiated: 00:18 <Lali Thompson A - Last Filed: 10/24/18 16:27> - Diagnosis (1) Psychosis Status: Acute Interventions: 10/24/18 16:26 Psychosis improved Patient tolerated medications well Denied visual auditory tactile hallucinations, denied paranoid ideations, patient does not appear to be psychotic (2) Depression Status: Acute Interventions: 10/24/18 16:27 Was depressed, denied suicidal ideations and none was elicited. (3) Substance abuse Status: Acute Interventions: 10/24/18 16:27 Denied using substances, but he was positive because of pain medication
--- NOTE | 2018-10-24 16:38 | PCM.PYCHDC ---
Mental Status Examination - Mental Status Examination Orientation: Person, Place, Time Memory: Intact Mood: Neutral Affect: Constricted (But more reactive and mood congruent) Speech: Appropriate Attention: WNL Concentration: WNL Formal Thought Process: No Impairment Description of patient's judgement and insight: Improved Psychotic Thoughts and Behaviors: Thought process mildly disorganized, but patient voiced things, denied ideations. Suicidal Ideation: No Current Homicidal Ideation?: No Plan: Adamantly denies thoughts of harming himself or others. Discharge Plan - Discharge Note Reason for Hospitalization: Patient was admitted to the psychiatric inpatient unit for evaluation stabilization of psychotic symptoms and possible suicidal ideation. Psychiatric History (includes Medical, Family, Personal Hx): As per HPI Consultations:: List each consultation separately and include: 1. Reason for request. 2. Findings. 3. Follow-up Consultations: Medical consult appreciated Summary of Hospital Course include:: 1. Description of specific treatment plan utilized for patients during their course of treatmen. 2. Summarize the time- course for resolution of acute symptoms and/or regressed behaviors. 3. Describe issues identified and worked on during hospitalization. 4. Describe medication utilized. 5. Describe medical problems identified and treated. 6. Reassessment of suicide risk Summary of Hospital Course: Shortly, patient is 42 year old male with a history of anxiety and depression presents to the [facility] emergency department with complaints of hearing voices and feeling anxious. states h/o of anxiety depression. [facility] did not have any ability, patient was transferred here in [place] for further evaluation stabilization and medication management. At the time of admission patient presented to be poor and unreliable historian, said that the main reason why he came to the hospital was "depression and anxiety" patient denied feeling paranoid denied hearing voices and denied seeing things. the only psychotic statement pt reported that "my neighbours messed me up by smoking something..." But based on report patient presented to be psychotic in the ED, complaining of hearing voices for the past 4 months, telling him about person by the name David Clayton, patient did not know who the person is. Patient also said that there is some device implanted into his hand. At times voices telling him to harm others and himself but patient adamantly denied that he wanted to harm himself or others. Please see admission note for more detailed information. Patient was stabilized on the following medications: The Xanax 2 mg 3 times a day as needed for anxiety Advair. Seroquel 100 mg twice a day for psychosis as well, no side effects observed or reported, aims 0, no EPS. Collaterals were obtained from patient's primary psychiatrist Dr. Damian please see notes for more detailed information. Overall patient improved significantly, psychosis improved, patient was compli ant with the medications and treatment plan, therapeutic milieu and supportive therapy Patient reached maximum effect from this hospitalization. Over the weekend patient was continued improving, no agitation, no aggression, patient had good appetite and sleep deemed ready for discharge. At the time of the discharge patient was considered to pose no imminent danger to self or others, will be following up with outpatient psychiatrist Dr. Damian, information about follow up appointment, time and address provided to the pt, (see SW note for more detailed information). It is a patient res ponsibility to follow up with outpatient clinic, PMD as well as specialists In case patient will need to obtain results of studies pending at discharge, patient was provided with contact information of Psychiatric Inpatient unit [phone] as well as Medical Record Department [phone], as well as [facility] team [phone]. Patient denied drugs, patient does not want to be on nicotine patch counseling about smoking and alcohol cessation provided pt was provided with prescriptions see medication reconciliation form Pt was educated about safety plan in case of worsening of symptoms or in case of suicidal or homicidal ideation call 911 or go to the nearest ER, also was educated to take meds as prescribed and stay away from drugs, pt verbalized understanding. Lab Results 10/18/18 07:15: TSH 3rd Generation 0.39 L 10/18/18 07:15: Fasting Glucose 110, Triglycerides 110, Cholesterol 224 H, LDL Cholesterol Direct 161 H, HDL Cholesterol 33 Vital Signs Temp Pulse Resp BP Pulse Ox 10/18/18 07:31 97.8 F 69 20 118/76 10/17/18 23:11 97.5 F L 74 17 108/82 100 10/17/18 21:57 98.3 F 70 18 127/80 97 - Diagnosis (1) Psychosis Status: Acute Priority: High (2) Depression Status: Chronic Priority: Medium (3) Substance abuse Status: Suspected - Final Diagnosis (DSM 5) Condition upon Discharge: GOOD Disposition: HOME/ ROUTINE Follow-up Treatment Plan: Patient will follow-up with Dr. Damian Prescriptions/Medication Reconciliation: Alprazolam [Xanax] 2 mg PO TID PRN #45 tablet PRN Reason: Anxiety Fluticasone/Salmeterol 250/50 [Advair Diskus 250/50] 1 puff IH Q12 #1 puff QUEtiapine [Seroquel] 100 mg PO AMHS #30 tab - Tobacco Cessation Tobacco Use Status for the last 30 days: Heavy User(>=5 cigs &/or cigars/pipes daily) Tobacco Use Treatment Practical Counseling Provided: Yes Tobacco Use Treatment FDA-Approved Cessation Medication Provided: No Reason for not providing: Patient refused tobacco cessation medication Smoking Cessation Prescription was given: No If no, reason for not providing: pt refused - Alcohol or Substance Abuse Does the patient have an Alcohol or Substance Abuse Disorder: No (Patient refused) A prescription for an FDA-approved medication for alcohol and drug dependence was given to the patient at discharge: No If no,reason for not providing: Patient denied using drugs - Antipsychotic Medications Pt discharged on 2 or more routine antipsychotic medications: No
== END 2018-10-24 13:47 | disposition home or self-care (01) | DRG 430 ==
LOC: ED 21:48 → ERH 22:12 → PSYC 22:45
PROVIDERS: ADMIT Psychiatry & Neurology Psychiatry; ATTEND Psychiatry & Neurology Psychiatry
DX: F32.3 Major depressive disorder, single episode, severe with psychotic features (principal); J45.21 Mild intermittent asthma with (acute) exacerbation; F17.210 Nicotine dependence, cigarettes, uncomplicated; F41.8 Other specified anxiety disorders; F41.0 Panic disorder [episodic paroxysmal anxiety]; M24.612 Ankylosis, left shoulder